=== PATIENT | male | born 1945 | race Caucasian/White ===

== ENCOUNTER 2018-06-18 08:14 | Emergency (ER) | payer BC ==
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
--- NOTE | 2018-06-18 09:37 | CR ---
CHEST: 2 view CLINICAL HISTORY:Left-sided chest pain COMPARISON:None FINDINGS: Heart and pulmonary vascularity are normal. Right lung is clear. There is a moderate left pleural effusion. There are deformities of multiple left ribs from 5 through at least 8. IMPRESSION: Left pleural fluid may be a hemothorax. Multiple left posterior lateral slightly displaced rib fractures
== END 2018-06-18 10:31 | disposition home or self-care (01) ==
LOC: JP.ED 08:14
DX: S22.42XA Multiple fractures of ribs, left side, initial encounter for closed fracture (principal); J94.2 Hemothorax; I10 Essential (primary) hypertension; E78.00 Pure hypercholesterolemia, unspecified; Z79.899 Other long term (current) drug therapy; W01.0XXA Fall on same level from slipping, tripping and stumbling without subsequent striking against object, initial encounter
CPT/HCPCS: 36415; 71046; 71046-26; 80048; 85025; 99285